=== PATIENT | male | born 1985 | race African-American/Black ===

== ENCOUNTER 2016-05-31 02:04 | Emergency (ER) | payer OTHER ==
[2016-05-31 02:42] VITALS: TEMP 98; BMI 23.6
[2016-05-31] MEDS ORDERED: TETRACAINE 0.5% OPHTH SOLN 2 ML BOTTLE OS ONE (02:56)
[2016-05-31] MEDS ORDERED: TETRACAINE 0.5% OPHTH SOLN 2 ML BOTTLE ONE (03:00)
[2016-05-31] MEDS ORDERED: FLUORESCEIN NA 1 EA STRIP ONE (03:00)
[2016-05-31] MEDS ORDERED: KETOROLAC TROMETHAMINE 60 MG/2 ML VIAL ONE (03:01)
[2016-05-31] MEDS ORDERED: KETOROLAC TROMETHAMINE 60 MG/2 ML VIAL IM ONE (03:10)
[2016-05-31] MEDS ORDERED: MOXIFLOXACIN HCL 0.5% OPHTHALMIC 3 ML BOTTLE OD ONE (03:19)
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
[2016-05-31] MEDS ORDERED: OXYCODONE/APAP 5/325MG COMBO TABLET PO ONE (03:53)
[2016-05-31] MEDS ORDERED: OXYCODONE/APAP 5/325MG COMBO TABLET ONE (04:11)
[2016-05-31 04:17] VITALS: BP 130/89; PULSE 74
== END 2016-05-31 04:17 | disposition home or self-care (01) ==
LOC: JER 02:04
DX: S05.01XA Injury of conjunctiva and corneal abrasion without foreign body, right eye, initial encounter (principal); W50.0XXA Accidental hit or strike by another person, initial encounter; Y93.89 Activity, other specified; Y92.89 Other specified places as the place of occurrence of the external cause
CPT/HCPCS: 99282-25